=== PATIENT | male | born 1960 | race Caucasian/White ===

== ENCOUNTER 2017-05-23 09:35 | Emergency (ER) | payer BC ==
[2017-05-23] MEDS ORDERED: Ondansetron 4 MG/2 ML SDV IVPUSH ONE (09:51)
[2017-05-23] MEDS ORDERED: Sodium Chloride 0.9% 1,000 ML IV SCH ×3 (10:00→12:00)
[2017-05-23] MEDS ORDERED: Ketorolac 30 MG/ML SDV IVPUSH ONE (10:26)
--- NOTE | 2017-05-23 10:28 | EDM.PDOC ---
ED HPI GENERAL MEDICAL PROBLEM - General Chief Complaint: General Stated Complaint: VOMITING Time Seen by Provider: 05/23/17 10:28 Source of Information: Reports: Patient, Family History Limitations: Reports: No Limitations - History of Present Illness INITIAL COMMENTS - FREE TEXT/NARRATIVE: pt arrived vomiting markedly and he has been vomiting all nite. He is not able to hold his meds down. He hs some upper abdomanal pain but not severe. Onset: Other ( started in the nite. ) Duration: Hour(s): Location: Reports: Abdomen Associated Symptoms: Reports: Fever/Chills, Nausea/Vomiting - Related Data Allergies Allergy/AdvReac Type Severity Reaction Status Date / Time Penicillins Allergy Cannot Verified 05/23/17 10:47 Remember Home Meds: Home Meds Aspirin 05/23/17 [History] Celecoxib [CeleBREX] 05/23/17 [History] Diazepam [Valium] 05/23/17 [History] Fluticasone/Salmeterol [Advair 250-50 Diskus] 05/23/17 [History] Gabapentin [Neurontin] 05/23/17 [History] Hydrocodone/Acetaminophen [Hydrocodon-Acetaminophen 5-325] 05/23/17 [History] Losartan/Hydrochlorothiazide [Losartan-HCTZ 100-12.5 MG] 05/23/17 [History] glyBURIDE [Glyburide] 05/23/17 [History] metFORMIN [Glucophage] 05/23/17 [History] ED ROS GENERAL - Review of Systems Review Of Systems: See Below Constitutional: Reports: Other (low grade temp at 100. ) HEENT: Reports: No Symptoms Respiratory: Reports: Other (Pt did hav a cough last week. ) Cardiovascular: Reports: No Symptoms Endocrine: Reports: No Symptoms GI/Abdominal: Reports: Nausea, Vomiting : Reports: No Symptoms Musculoskeletal: Reports: No Symptoms Skin: Reports: No Symptoms ED EXAM, GENERAL - Physical Exam Exam: See Below Free Text/Narrative:: pt arrived with severe vomiting. He was concerned because he could not hold down his diabetic meds. Exam Limited By: No Limitations General Appearance: Alert, Moderate Distress, Other ( wretching continuously) Ears: Normal TMs Nose: Normal Inspection Throat/Mouth: Normal Inspection Head: Atraumatic Neck: Normal Inspection Respiratory/Chest: No Respiratory Distress Cardiovascular: Regular Rate, Rhythm GI/Abdominal: Soft, Other ( mild epigastric tenderness) (Male) Exam: Deferred Rectal (Males) Exam: Deferred Back Exam: Normal Inspection Extremities: Normal Inspection Neurological: Alert, Oriented, Normal Cognition Psychiatric: Anxious Course - Vital Signs Last Recorded V/S: Last Vital Signs Temp 38.1 C 05/23/17 10:56 Pulse 108 H 05/23/17 11:46 Resp 18 05/23/17 11:46 BP 130/69 05/23/17 11:46 Pulse Ox 92 L 05/23/17 11:46 - Orders/Labs/Meds Orders: Active Orders 24 hr Category Date Time Status Sodium Chloride 0.9% [Normal Saline] 1,000 ml Med 05/23/17 10:00 Active IV ASDIRECTED Sodium Chloride 0.9% [Normal Saline] 1,000 ml Med 05/23/17 11:00 Active IV ASDIRECTED Sodium Chloride 0.9% [Normal Saline] 1,000 ml Med 05/23/17 12:00 Active IV ASDIRECTED glyBURIDE [Micronase] Med 05/23/17 13:21 Once 5 mg PO WITHBREAKFAST ONE Medication Orders Sodium Chloride (Normal Saline) 1,000 mls @ 999 mls/hr IV ASDIRECTED NABIL Last Admin: 05/23/17 10:45 Dose: 999 mls/hr Sodium Chloride (Normal Saline) 1,000 mls @ 999 mls/hr IV ASDIRECTED NABIL Last Admin: 05/23/17 11:12 Dose: 999 mls/hr Sodium Chloride (Normal Saline) 1,000 mls @ 999 mls/hr IV ASDIRECTED NABIL Last Admin: 05/23/17 12:46 Dose: 999 mls/hr Labs: Laboratory Tests 05/23/17 05/23/17 05/23/17 Range/Units 09:59 09:59 10:26 WBC 14.5 H (4.5-11.0) K/uL RBC 6.24 H (4.30-5.90) M/uL Hgb 18.4 H* (12.0-15.0) g/dL Hct 53.2 (40.0-54.0) % MCV 85 (80-98) fL MCH 30 (27-31) pg MCHC 35 (32-36) % Plt Count 228 (150-400) K/uL Neut % (Auto) 88 H (36-66) % Lymph % (Auto) 7 L (24-44) % [place] % (Auto) 5 (2-6) % Eos % (Auto) 0 L (2-4) % Baso % (Auto) 0 (0-1) % Sodium 138 L (140-148) mmol/L Potassium 4.1 (3.6-5.2) mmol/L Chloride 100 (100-108) mmol/L Carbon Dioxide 30 (21-32) mmol/L Anion Gap 12.1 (5.0-14.0) mmol/L BUN 25 H (7-18) mg/dL Creatinine 1.2 (0.8-1.3) mg/dL Est Cr Clr Drug Dosing 74.95 mL/min Estimated GFR (MDRD) > 60 (>60) Glucose 196 H (74-106) mg/dL Calcium 8.8 (8.5-10.1) mg/dL Total Bilirubin 0.9 (0.2-1.0) mg/dL AST 41 H (15-37) U/L ALT 71 (12-78) U/L Alkaline Phosphatase 59 (46-116) U/L Total Protein 7.6 (6.4-8.2) g/dL Albumin 3.9 (3.4-5.0) g/dL Globulin 3.7 H (2.3-3.5) g/dL Albumin/Globulin Ratio 1.1 L (1.2-2.2) Lipase 91 (73-393) U/L Urine Color Urine Appearance Urine pH (4.5-8.0) Ur Specific [place] (1.008-1.030) Urine Protein (NEGATIVE) mg/dL Urine Glucose (UA) (NEGATIVE) mg/dL Urine Ketones (NEGATIVE) mg/dL Urine Occult Blood (NEGATIVE) Urine Nitrite (NEGAITVE) Urine Bilirubin (NEGATIVE) Urine Urobilinogen (NORMAL) mg/dL Ur Leukocyte Esterase (NEGATIVE) Urine RBC (0-5) Urine WBC (0-5) Ur Epithelial Cells Amorphous Sediment Urine Bacteria Urine Mucus 05/23/17 Range/Units 13:04 WBC (4.5-11.0) K/uL RBC (4.30-5.90) M/uL Hgb (12.0-15.0) g/dL Hct (40.0-54.0) % MCV (80-98) fL MCH (27-31) pg MCHC (32-36) % Plt Count (150-400) K/uL Neut % (Auto) (36-66) % Lymph % (Auto) (24-44) % [place] % (Auto) (2-6) % Eos % (Auto) (2-4) % Baso % (Auto) (0-1) % Sodium (140-148) mmol/L Potassium (3.6-5.2) mmol/L Chloride (100-108) mmol/L Carbon Dioxide (21-32) mmol/L Anion Gap (5.0-14.0) mmol/L BUN (7-18) mg/dL Creatinine (0.8-1.3) mg/dL Est Cr Clr Drug Dosing mL/min Estimated GFR (MDRD) (>60) Glucose (74-106) mg/dL Calcium (8.5-10.1) mg/dL Total Bilirubin (0.2-1.0) mg/dL AST (15-37) U/L ALT (12-78) U/L Alkaline Phosphatase (46-116) U/L Total Protein (6.4-8.2) g/dL Albumin (3.4-5.0) g/dL Globulin (2.3-3.5) g/dL Albumin/Globulin Ratio (1.2-2.2) Lipase (73-393) U/L Urine Color Yellow Urine Appearance Clear Urine pH 6.0 (4.5-8.0) Ur Specific [place] 1.020 (1.008-1.030) Urine Protein Negative (NEGATIVE) mg/dL Urine Glucose (UA) Normal (NEGATIVE) mg/dL Urine Ketones Negative (NEGATIVE) mg/dL Urine Occult Blood Negative (NEGATIVE) Urine Nitrite Negative (NEGAITVE) Urine Bilirubin Small (NEGATIVE) Urine Urobilinogen Normal (NORMAL) mg/dL Ur Leukocyte Esterase Negative (NEGATIVE) Urine RBC 0-5 (0-5) Urine WBC Not seen (0-5) Ur Epithelial Cells Not seen Amorphous Sediment Rare Urine Bacteria Not seen Urine Mucus Not seen Meds: Medications Generic Name Dose Route Start Last Admin Trade Name Freq PRN Reason Stop Dose Admin Sodium Chloride 1,000 mls @ 999 mls/hr 05/23/17 10:00 05/23/17 10:45 Normal Saline IV 999 mls/hr ASDIRECTED NABIL Administration Sodium Chloride 1,000 mls @ 999 mls/hr 05/23/17 11:00 05/23/17 11:12 Normal Saline IV 999 mls/hr ASDIRECTED NABIL Administration Sodium Chloride 1,000 mls @ 999 mls/hr 05/23/17 12:00 05/23/17 12:46 Normal Saline IV 999 mls/hr ASDIRECTED NABIL Administration Discontinued Medications Generic Name Dose Route Start Last Admin Trade Name Freq PRN Reason Stop Dose Admin Hydromorphone HCl 0.5 mg 05/23/17 11:14 05/23/17 11:23 Dilaudid IVPUSH 05/23/17 11:15 0.5 mg ONETIME ONE Administration Ketorolac Tromethamine 30 mg 05/23/17 10:26 05/23/17 10:44 Toradol IVPUSH 05/23/17 10:27 30 mg ONETIME ONE Administration Metformin HCl 500 mg 05/23/17 13:21 Glucophage PO 05/23/17 13:22 ONETIME ONE Ondansetron HCl 4 mg 05/23/17 09:51 05/23/17 10:44 Zofran IVPUSH 05/23/17 09:52 4 mg ONETIME ONE Administration Pantoprazole Sodium 40 mg 05/23/17 11:13 05/23/17 11:23 Protonix Iv IVPUSH 05/23/17 11:14 40 mg ONETIME ONE Administration - Re-Assessments/Exams Free Text/Narrative Re-Assessment/Exam: 05/23/17 13:25 pt arrived vomiting markedly. He has been given 3 liters of fluid and he is finally voiding. His urine is clear. He ist aking clear liquids and doing ok with that. His bs is 196. His urine is clear and free of infection. He was given his metformin and glyburide. Departure - Departure Time of Disposition: 13:27 Disposition: Home, Self-Care 01 Condition: Fair Clinical Impression: Viral gastroenteritis, Severe dehydration - Discharge Information Referrals: PCP,None [Primary Care Provider] - Forms: ED Department Discharge Care Plan Goals: push clear liquids, resume ususl meds, zoforan 4mg subling q6h prn. - My Orders Last 24 Hours: My Active Orders 05/23/17 10:00 Sodium Chloride 0.9% [Normal Saline] 1,000 ml IV ASDIRECTED 05/23/17 11:00 Sodium Chloride 0.9% [Normal Saline] 1,000 ml IV ASDIRECTED 05/23/17 12:00 Sodium Chloride 0.9% [Normal Saline] 1,000 ml IV ASDIRECTED 05/23/17 13:21 glyBURIDE [Micronase] 5 mg PO WITHBREAKFAST ONE - Assessment/Plan Last 24 Hours: My Active Orders 05/23/17 10:00 Sodium Chloride 0.9% [Normal Saline] 1,000 ml IV ASDIRECTED 05/23/17 11:00 Sodium Chloride 0.9% [Normal Saline] 1,000 ml IV ASDIRECTED 05/23/17 12:00 Sodium Chloride 0.9% [Normal Saline] 1,000 ml IV ASDIRECTED 05/23/17 13:21 glyBURIDE [Micronase] 5 mg PO WITHBREAKFAST ONE
[2017-05-23] MEDS ORDERED: Pantoprazole 40 MG Vial IVPUSH ONE (11:13)
[2017-05-23] MEDS ORDERED: HYDROmorphone 0.5 MG/0.5 ML Syringe IVPUSH ONE (11:14)
[2017-05-23] MEDS ORDERED: metFORMIN 500 MG Tab PO ONE (13:21)
== END 2017-05-23 13:44 | disposition home or self-care (01) ==
LOC: JP.ED 09:35
DX: A08.4 Viral intestinal infection, unspecified (principal); E86.0 Dehydration; Z88.0 Allergy status to penicillin; Z88.2 Allergy status to sulfonamides
CPT/HCPCS: 36415; 80053; 81001; 83690; 85025; 96361; 96374; 96375; 99284; A9270; C9113; J1170; J1885; J2405; J7040